=== PATIENT | female | born 1975 | race Two or more races ===

== ENCOUNTER 2019-09-22 07:10 | Emergency (ER) | payer OTHER ==
--- NOTE | 2019-09-22 10:21 | RADIOLOGY REPORT (SQ) ---
EXAM DESCRIPTION: KUB/ABDOMEN (SINGLE VIEW) COMPLETED DATE/TIME: 09/22/2019 10:09 am REASON FOR STUDY: back pain/abd pain, hard stools COMPARISON: None. NUMBER OF VIEWS: One view. TECHNIQUE: Supine radiographic image of the abdomen acquired. LIMITATIONS: None by collimation. FINDINGS: BOWEL GAS PATTERN: Normal bowel gas pattern. No dilated loops. Moderate fecal burden thro ughout the colon. CALCIFICATIONS: No suspicious calcifications. Scattered pelvic phleboliths. SOFT TISSUES: No gross mass or suggestion of organomegaly. HARDWARE: None in the abdomen. BONES: No acute fracture. No worrisome bone lesions. OTHER: No other significant finding. IMPRESSION: No evidence of acute intra-abdominal/pelvic process. Moderate fecal burden throughout the colon. TECHNICAL DOCUMENTATION: JOB ID: [id number] [employer]- All Rights Reserved Reading location - IP/workstation name: [email or web address]
[2019-09-22] MEDS ORDERED: DICYCLOMINE HCL INJ 20 MG/2 ML AMPULE IM ONE (10:53)
[2019-09-22] MEDS ORDERED: ONDANSETRON HCL INJ/PF 4 MG/2 ML SDV IV ONE (10:53)
[2019-09-22] MEDS ORDERED: MAGNESIUM CITRATE 296 ML BOTTLE PO ONE (10:54)
[2019-09-22] MEDS ORDERED: NORMAL SALINE 1000 ML 1,000 ML IV ONE (10:54)
--- NOTE | 2019-09-22 11:29 | ER Document Report ---
ED General - General Chief Complaint: Back Pain Stated Complaint: LOW BACK/FLANK PAIN Time Seen by Provider: 09/22/19 10:11 Primary Care Provider: [facility] [Provider Group] - Follow up in 3-5 days RORY ECHAVARRIA MD [ACTIVE STAFF] - Follow up in 3-5 days Notes: 44-year-old female presents for abdominal pain for the past few days. Patient also states she has been constipated for 1.5 weeks. Patient states she had a small hard stool yesterday. Patient is still passing gas. Patient also has had nausea/vomiting. Patient denies any history of abdominal surgeries. Patient denies any fever, chills, diarrhea, urinary symptoms. Past Medical History - Social History Smoking Status: Unknown if Ever Smoked Frequency of alcohol use: None Drug Abuse: None Family History: None Patient has suicidal ideation: No Patient has homicidal ideation: No - Past Medical History Cardiac Medical History: Reports: Hx Hypercholesterolemia, Hx Hypertension Psychiatric Medical History: Reports: Hx Depression Review of Systems - Review of Systems Notes: Constitutional: Negative for fever. HENT: Negative for sore throat. Eyes: Negative for visual changes. Cardiovascular: Negative for chest pain. Respiratory: Negative for shortness of breath. Gastrointestinal: Positive for abdominal pain, vomiting, constipation. Negative for diarrhea. Genitourinary: Negative for dysuria. Musculoskeletal: Negative for back pain. Skin: Negative for rash. Neurological: Negative for headaches, weakness or numbness. 10 point ROS negative except as marked above and in HPI. Physical Exam - Vital signs Vitals: Temp Pulse Resp BP Pulse Ox 98.2 F 64 16 112/66 100 09/22/19 07:29 09/22/19 07:29 09/22/19 07:29 09/22/19 07:29 09/22/19 07:29 - Notes Notes: GENERAL: Well-appearing, well-nourished and in no acute distress. HEAD: Atraumatic, normocephalic. EYES: Extraocular movements intact, sclera anicteric, conjunctiva are normal. NECK: Normal range of motion, supple without lymphadenopathy or JVD. LUNGS: Breath sounds clear to auscultation bilaterally and equal. No wheezes rales or rhonchi. HEART: Regular rate and rhythm without murmurs, rubs or gallops. ABDOMEN: Soft, mildly tender to left side.. No guarding, no rebound. No masses appreciated. EXTREMITIES: Normal range of motion, no pitting or edema. No clubbing or cyanosis. NEUROLOGICAL: Cranial nerves II through XII grossly intact. Normal speech, normal gait. PSYCH: Normal mood, normal affect. SKIN: Warm, Dry, normal turgor, no rashes or lesions noted. Course - Re-evaluation Re-evalutation: 09/22/19 44-year-old female presents with abdominal pain, nausea/vomiting/constipation for the past week and a half. Patient states she is having small hard stools. Patient states she usually goes daily. No blood. Patient is tender to the left side of her abdomen without guarding or rebound. PE is otherwise unremarkable. Patient is nontoxic, well-appearing. KUB shows moderate fecal burden throughout the colon. Lab work was ordered. Bentyl IM and Zofran IV, mag citrate, and IV fluids were also ordered. 09/22/19 12:44 patient p.o. tolerant. Lab work is unremarkable. No leukocytosis. Liver enzymes are normal. Kidney function is normal. Lipase is normal. Alk phos is normal. Patient is afebrile. Patient's symptoms have subs ided at this time. Patient given prescription for Bentyl, Zofran, and mag citrate. Patient also given close follow-up with PCP. Strict return precautions given/discussed. Patient voices understanding and agrees with plan of care. - Vital Signs Vital signs: Temp Pulse Resp BP Pulse Ox 98.1 F 52 L 16 106/53 L 96 09/22/19 10:33 09/22/19 10:33 09/22/19 10:33 09/22/19 10:33 09/22/19 10:33 - Laboratory Result Diagrams: 09/22/19 11:15 09/22/19 11:15 Laboratory results interpreted by me: 09/22/19 09/22/19 11:15 11:15 RDW 14.4 H Urine Protein 100 H Urine Blood SMALL H Leukocyte Esterase Rfl TRACE H Discharge - Discharge Clinical Impression: Abdominal pain Qualifiers: Abdominal location: generalized Qualified Code(s): R10.84 - Generalized abdominal pain Nausea & vomiting Qualifiers: Vomiting type: unspecified Vomiting Intractability: unspecified Qualified Code(s): R11.2 - Nausea with vomiting, unspecified Constipation Qualifiers: Constipation type: unspecified constipation type Qualified Code(s): K59.00 - Constipation, unspecified Condition: Stable Disposition: HOME, SELF-CARE Instructions: Abdominal Pain ([facility]), Antinausea Medication ([facility]), Constipation ([facility]), Intravenous (IV) Fluids ([facility]) Additional Instructions: Your abdominal x-ray showed constipation. Your lab work including CBC, CMP, urine was reassuring today. Please take medications as prescribed. Please follow-up with your primary care doctor in 3 to 5 days. Return immediately to ER if you start having any worsening symptoms, including worsening abdominal pain, being unable to pass gas, vomiting not controlled by medication, fever, chills, chest pain, shortness of breath, or any other symptoms that are concerning to you. Prescriptions: Ondansetron [Zofran Odt 4 mg Tablet] 1 - 2 tab PO Q4HP PRN #10 tab.rapdis PRN Reason: Dicyclomine HCl [Bentyl 20 mg Tablet] 20 mg PO QID #40 tablet Magnesium Citrate [Citrate of Magnesia 296 ml Bottle] 296 ml PO DAILY #1 bottle Forms: Return to Work Referrals: RORY ECHAVARRIA MD [ACTIVE STAFF] - Follow up in 3-5 days [facility] [Provider Group] - Follow up in 3-5 days
[2019-09-22 11:36] LABS: ABSOLUTE LYMPHOCYTES (AUTO) 1.7 10^3/uL (0.5-4.7); ABSOLUTE MONOCYTES (AUTO) 0.4 10^3/uL (0.1-1.4); ABSOLUTE NEUT (AUTO) 6.7 10^3/uL (1.7-8.2); BASOPHILS % (AUTO) 0.3 % (0-2); EOSINOPHILS % (AUTO) 0.4 % (0-6); HEMATOCRIT 38.3 % (36.0-47.0); HEMOGLOBIN 13.4 g/dL (12.0-15.5); LYMPHOCYTES % (AUTO) 19.2 % (13-45); MEAN CORPUSCULAR HEMOGLOBIN 31.6 pg (27.0-33.4); MEAN CORPUSCULAR HGB CONC 34.9 g/dL (32.0-36.0); MEAN CORPUSCULAR VOLUME 91 fl (80-97); MONOCYTES % (AUTO) 4.3 % (3-13); PLATELET COUNT 368 10^3/uL (150-450); RED BLOOD COUNT 4.23 10^6/uL (3.72-5.28); RED CELL DISTRIBUTION WIDTH 14.4 % (11.5-14.0); SEGMENTED NEUTROPHILS % (AUTO) 75.8 % (42-78); TOTAL CELLS COUNTED % (AUTO) 100 %; WHITE BLOOD COUNT 8.9 10^3/uL (4.0-10.5)
[2019-09-22 11:42] LABS: APPEARANCE,URINE SLIGHTLY-CLOUDY; BILIRUBIN,URINE NEGATIVE (NEGATIVE); COLOR,URINE YELLOW; GLUCOSE, URINE NEGATIVE (NEGATIVE); KETONES,URINE NEGATIVE (NEGATIVE); PROTEIN,URINE 100 mg/dL (NEGATIVE); URINE SPECIFIC GRAVITY 1.027; UROBILINOGEN,URINE NEGATIVE mg/dL (<2.0)
[2019-09-22 11:56] LABS: ALBUMIN 4.6 g/dL (3.5-5.0); ALKALINE PHOSPHATASE 85 U/L (38-126); ANION GAP 12 (5-19); ASPARTATE AMINO TRANSFERASE 21 U/L (14-36); BILIRUBIN,DIRECT 0.2 mg/dL (0.0-0.4); BILIRUBIN,TOTAL 0.5 mg/dL (0.2-1.3); BLOOD UREA NITROGEN 13 mg/dL (7-20); CALCIUM 9.7 mg/dL (8.4-10.2); CARBON DIOXIDE 27 mmol/L (22-30); CHLORIDE 101 mmol/L (98-107); GLUCOSE 85 mg/dL (75-110); POTASSIUM 4.7 mmol/L (3.6-5.0); TOTAL PROTEIN 7.8 g/dL (6.3-8.2)
[2019-09-22 12:53] VITALS: BP 122/65
== END 2019-09-22 12:52 | disposition home or self-care (01) ==
LOC: ER 07:10
DX: R10.84 Generalized abdominal pain (principal); K59.00 Constipation, unspecified; R11.2 Nausea with vomiting, unspecified; M54.9 Dorsalgia, unspecified; M54.5 Low back pain; I10 Essential (primary) hypertension
CPT/HCPCS: 99283; 96372; 96361; 96374; 36415; 87086; 83690; 84703; 85025; 80053; 81001; 74018; J3490; J0500; J2405; J7030

== ENCOUNTER 2020-07-17 12:08 | Emergency (ER) | payer OTHER ==
--- NOTE | 2020-07-17 12:44 | ER Document Report ---
ED Medical Screen (RME) - General Chief Complaint: Headache Stated Complaint: HEADACHE,NECK PAIN Time Seen by Provider: 07/17/20 12:39 Information source: Patient Notes: Patient presents complaining of dizziness with nausea and vomiting off and on since Saturday. Patient states that today she had a sudden onset of headache pain around 10 AM and had vision disturbances. Patient states her hearing has been off all week. Patient does have a history of aneurysm that has been previously clipped. Patient is concerned about possible stroke. Patient reports headache pain to the left posterior scalp that radiates into the neck area I have greeted and performed a rapid initial assessment of this patient. A comprehensive ED assessment and evaluation of the patient, analysis of test results and completion of the medical decision making process will be conducted by additional ED providers. - Related Data Allergies/Adverse Reactions: No Known Allergies Allergy (Unverified 07/17/20 12:38) Past Medical History - Past Medical History Cardiac Medical History: Reports: Hx Hypercholesterolemia, Hx Hypertension Psychiatric Medical History: Reports: Hx Depression Physical Exam - Vital signs Vitals: Temp Pulse Resp BP Pulse Ox 98.7 F 86 16 121/60 100 07/17/20 12:15 07/17/20 12:15 07/17/20 12:15 07/17/20 12:15 07/17/20 12:15 - Neurological Orientation: AAOx4 Lawson Coma Scale Eye Opening: Spontaneous Lawson Coma Scale Verbal: Oriented Lawson Coma Scale Motor: Obeys Commands Laura Coma Scale Total: 15 Course - Vital Signs Vital signs: Temp Pulse Resp BP Pulse Ox 98.7 F 86 16 121/60 100 07/17/20 12:15 07/17/20 12:15 07/17/20 12:15 07/17/20 12:15 07/17/20 12:15
--- NOTE | 2020-07-17 13:20 | RADIOLOGY REPORT (SQ) ---
EXAM DESCRIPTION: CHEST SINGLE VIEW IMAGES COMPLETED DATE/TIME: 07/17/2020 1:03 pm REASON FOR STUDY: BUENO, vision change, hx aneurysm clipping COMPARISON: None. NUMBER OF VIEWS: One view. TECHNIQUE: Single frontal radiographic view of the chest acquired. LIMITATIONS: None. FINDINGS: LUNGS AND PLEURA: No opacities, masses or pneumothorax. No pleural effusion. MEDIASTINUM AND HILAR STRUCTURES: No masses. Contour normal. HEART AND VASCULAR STRUCTURES: Heart normal in size. Normal vasculature. BONES: No acute findings. HARDWARE: None in the chest. OTHER: No other significant finding. IMPRESSION: NO SIGNIFICANT RADIOGRAPHIC FINDING IN THE CHEST. TECHNICAL DOCUMENTATION: JOB ID: [id number] 2010 [employer]- All Rights Reserved Reading location - IP/workstation name: [email or web address]
--- NOTE | 2020-07-17 13:29 | RADIOLOGY REPORT (SQ) ---
EXAM DESCRIPTION: CT HEAD WITHOUT IMAGES COMPLETED DATE/TIME: 07/17/2020 1:09 pm REASON FOR STUDY: BUENO, vision change, hx aneurysm clipping COMPARISON: CT/CTA head 05/11/2011 TECHNIQUE: Axial images acquired through the brain without intravenous contrast. Images reviewed wi th bone, brain and subdural windows. Images stored on PACS. All CT scanners at this facility use dose modulation, iterative reconstruction, and/or weight based d osing when appropriate to reduce radiation dose to as low as reasonably achievable (ALARA). [facility]: Dose Right [facility]: CareDose [facility]: Dose Right [facility]: Teradose 4D [facility]: [employer] RADIATION DOSE: CT Rad equipment meets quality standard of care and radiation dose reduction techniq ues were employed. CTDIvol: 53.2 mGy. DLP: 1044 mGy-cm. mGy. LIMITATIONS: None. FINDINGS: VENTRICLES: Normal size and contour, apart from a subtle ex vacuo dilatation of the fronta l horn on the right secondary to a small region of encephalomalacia in the adjacent parenchyma. CEREBRUM: No masses. No hemorrhage. No midline shift. No evidence for acute infarction. Normal gra y/white matter differentiation. No areas of low density in the white matter. CEREBELLUM: No masses. No hemorrhage. No alteration of density. No evidence for acute infarction. EXTRAAXIAL SPACES: No fluid collections. No masses. ORBITS AND GLOBE: No intra- or extraconal masses. Normal contour of globe without masses. CALVARIUM: No fracture. PARANASAL SINUSES: No fluid or mucosal thickening. SOFT TISSUES: No mass or hematoma. OTHER: Metallic aneurysm clip is unchanged. No other significant finding. IMPRESSION: No intracranial hemorrhage, mass effect/ midline shift, or large vessel territory hypode nsity to suggest acute ischemia. 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 EVIDENCE OF ACUTE STROKE: NO. COMMENT: Quality ID # [id number]: Final reports with documentation of one or more dose reduction techniques (e.g., Automated exposure control, adjustment of the mA and/or kV according to patient size, use of iterative reconstruction technique) TECHNICAL DOCUMENTATION: JOB ID: [id number] 2010 [employer]- All Rights Reserved Reading location - IP/workstation name: [email or web address]
[2020-07-17 13:42] LABS: ABSOLUTE EOSINOPHILS # (AUTO) 0.1 10^3/uL (0.0-0.6); ABSOLUTE LYMPHOCYTES (AUTO) 1.8 10^3/uL (0.5-4.7); ABSOLUTE MONOCYTES (AUTO) 0.5 10^3/uL (0.1-1.4); ABSOLUTE NEUT (AUTO) 4.5 10^3/uL (1.7-8.2); BASOPHILS % (AUTO) 0.5 % (0-2); HEMATOCRIT 36.9 % (36.0-47.0); HEMOGLOBIN 12.8 g/dL (12.0-15.5); LYMPHOCYTES % (AUTO) 25.5 % (13-45); MEAN CORPUSCULAR HEMOGLOBIN 31.2 pg (27.0-33.4); MEAN CORPUSCULAR HGB CONC 34.7 g/dL (32.0-36.0); MEAN CORPUSCULAR VOLUME 90 fl (80-97); MONOCYTES % (AUTO) 7.2 % (3-13); PLATELET COUNT 325 10^3/uL (150-450); SEGMENTED NEUTROPHILS % (AUTO) 65.8 % (42-78); TOTAL CELLS COUNTED % (AUTO) 100 %; WHITE BLOOD COUNT 6.9 10^3/uL (4.0-10.5)
[2020-07-17 13:48] LABS: INTERNATIONAL RATION (INR) 0.97; PROTHROMBIN TIME 13.1 SEC (11.4-15.4)
[2020-07-17 13:49] LABS: PARTIAL THROMBOPLASTIN TIME 31.5 SEC (23.5-35.8)
[2020-07-17 14:04] LABS: ALBUMIN 4.6 g/dL (3.5-5.0); ALKALINE PHOSPHATASE 97 U/L (38-126); ANION GAP 9 (5-19); ASPARTATE AMINO TRANSFERASE 32 U/L (14-36); BILIRUBIN,DIRECT 0.2 mg/dL (0.0-0.4); BILIRUBIN,TOTAL 0.5 mg/dL (0.2-1.3); BLOOD UREA NITROGEN 14 mg/dL (7-20); CARBON DIOXIDE 27 mmol/L (22-30); CHLORIDE 103 mmol/L (98-107); CREATINE KINASE 601 U/L (30-135); GLUCOSE 99 mg/dL (75-110); POTASSIUM 4.5 mmol/L (3.6-5.0); TOTAL PROTEIN 7.4 g/dL (6.3-8.2)
[2020-07-17 14:24] LABS: CREATINE KINASE MB 0.25 ng/mL (<4.55)
[2020-07-17 14:27] LABS: TROPONIN I < 0.012 ng/mL
--- NOTE | 2020-07-17 14:53 | ER Document Report ---
Entered by NATHANIEL GABRIEL SCRIBE 07/17/20 1328 Acting as scribe for:ALISA RAINES MD ED General - General Chief Complaint: Headache Stated Complaint: HEADACHE,NECK PAIN Time Seen by Provider: 07/17/20 12:39 Mode of Arrival: Ambulatory Information source: Patient Notes: This 45-year-old female patient with a family and personal history of cerebral aneurysm s/p titanium clipping presents today with complaints of a one week history of lightheadedness and dizziness with associated vomiting. Patient requesting to have her head scanned today which is why it sounds like she is here ultimately. She states she went to [facility] a few days ago, they did "not scan her head, gave her Zofran which made her symptoms worse, and then gave her Phenergan which helped her symptoms". Patient mentions that she had an episode where she "felt like she got hit in the top of her head with a hammer" and she had blurred vision but that has all subsided. - Related Data Allergies/Adverse Reactions: No Known Allergies Allergy (Unverified 07/17/20 12:38) Past Medical History - General Information source: Patient - Social History Smoking Status: Unknown if Ever Smoked Cigarette use (# per day): No Frequency of alcohol use: None Drug Abuse: None Lives with: Family Family History: Other - Cerebral aneurysm - Past Medical History Cardiac Medical History: Reports: Hx Hypercholesterolemia, Hx Hypertension Neurological Medical History: Reports: Other - Hx aneurysm clipping Psychiatric Medical History: Reports: Hx Depression Past Surgical History: Reports: Hx Neurologic Surgery - Brain aneurysm clipping Review of Systems - Review of Systems Constitutional: No symptoms reported EENT: No symptoms reported Cardiovascular: See HPI, Dizziness, Lightheaded Respiratory: No symptoms reported Gastrointestinal: See HPI, Vomiting Genitourinary: No symptoms reported Female Genitourinary: No symptoms reported Musculoskeletal: No symptoms reported Skin: No symptoms reported Hematologic/Lymphatic: No symptoms reported Neurological/Psychological: No symptoms reported -: Yes All other systems reviewed and negative Physical Exam - Vital signs Vitals: Temp Pulse Resp BP Pulse Ox 98.7 F 86 16 121/60 100 07/17/20 12:15 07/17/20 12:15 07/17/20 12:15 07/17/20 12:15 07/17/20 12:15 - Notes Notes: Physical Exam: General: Alert, appears well. HEENT: Normocephalic. Atraumatic. PERRL. Extraocular movements intact. Oropharynx clear. Left TM is normal. Right TM is unable to be visualized due to cerumen impaction. Neck: Supple. Non-tender. Respiratory: No respiratory distress. Clear and equal breath sounds bilaterally. Cardiovascular: Regular rate and rhythm. Abdominal: Normal Inspection. Non-tender. No distension. Normal Bowel Sounds. Back: No gross abnormalities. Extremities: Moves all four extremities. Upper extremities: Normal inspection. Normal ROM. Lower extremities: Normal inspection. No edema. Normal ROM. Neurological: Normal cognition. AAOx4. Normal speech. Cranial nerves II through XII grossly intact bilaterally. Fewq-cq-walk test intact. No pronator drift. Xwhreq-wf-syzo test intact. Normal hazardous waste technician strength bilaterally. Normal sensation bilaterally. Psychological: Normal affect. Normal Mood. Skin: Warm. Dry. Normal color. Course - Re-evaluation Re-evalutation: 07/17/20 14:46 Patient sitting comfortably resting in bed no complaints of headache or dizziness at this time. Patient is pending her results which we discussed. CT scan of the head showed no evidence for any intracranial bleed or stroke. - Vital Signs Vital signs: Temp Pulse Resp BP Pulse Ox 98.7 F 51 L 16 118/71 99 07/17/20 12:15 07/17/20 13:05 07/17/20 13:05 07/17/20 13:05 07/17/20 13:05 07/17/20 14:46 Vital signs stable. - Laboratory Result Diagrams: 07/17/20 13:20 07/17/20 13:20 Laboratory results interpreted by me: 07/17/20 07/17/20 13:08 13:20 POC Glucose 111 H Creatine Kinase 601 H 07/17/20 14:47 Laboratories within normal range except a CK of 601. 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 Patient's blood sugar is 111. - Diagnostic Test Radiology reviewed: Image reviewed, Reports reviewed Radiology results interpreted by me: 07/17/20 14:47 Chest X-Ray 07/17/20 12:42 IMPRESSION: NO SIGNIFICANT RADIOGRAPHIC FINDING IN THE CHEST. Head CT 07/17/20 12:42 IMPRESSION: No intracranial hemorrhage, mass effect/ midline shift, or large vessel territory hypodensity to suggest acute ischemia. 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 EVIDENCE OF ACUTE STROKE: NO. Chest x-ray shows no acute infiltrate. And head CT shows no evidence for an acute stroke there is an area in the right frontal lobe where patient has an prior aneurysm clipping and probable old infarct in that region. Discharge - Discharge Clinical Impression: Labyrinthitis of left ear Condition: Stable Disposition: HOME, SELF-CARE Instructions: Labyrinthitis ([facility]), Meclizine ([facility]) Additional Instructions: Labyrinthitis Labyrinthitis is a temporary disease of the inner ear. It's sometimes called vestibulitis. It often starts a few days after a cold or virus infection. Symptoms include vertigo (the spinning type of dizziness) or a sense of unsteadiness and nausea. The symptoms usually go away in a couple of days without any treatment. You should rest and keep your head still. The dizziness is worse if you move your head. Closing the eyes usually helps. Don't drive, work with d angerous machinery, or get up on ladders or scaffolds until a few days after the dizziness resolves. Medicine such as meclizine (Antivert, Bonine) can reduce the dizziness and nausea. Tranquilizers (such as diazepam) can suppress your sense of balance, reducing the unpleasantness of the vertigo. Call or return if you develop ear pain, loss of hearing, fever, severe vomiting, or any other new symptom. Prescriptions: Meclizine HCl [Antivert 25 mg Tablet] 25 mg PO TID PRN #30 tablet PRN Reason: I personally performed the services described in the documentation, reviewed and edited the documentation which was dictated to the scribe in my presence, and it accurately records my words and actions.
[2020-07-17 16:26] VITALS: BP 142/88
--- NOTE | 2020-07-17 19:15 | EKG REPORT ---
SEVERITY:- ABNORMAL ECG - SINUS RHYTHM FIRST DEGREE AV BLOCK : Confirmed by: Clinton Corea MD 17-Jul-2020 19:14:13
== END 2020-07-17 16:26 | disposition home or self-care (01) ==
LOC: ER 12:08
DX: H83.02 Labyrinthitis, left ear (principal); H61.21 Impacted cerumen, right ear; R42 Dizziness and giddiness; R11.10 Vomiting, unspecified; R51.9 Headache, unspecified; I10 Essential (primary) hypertension
CPT/HCPCS: 36415; 70450; 71045; 80053; 82550; 82553; 82962; 84484; 85025; 85610; 85730; 93005; 93010; 99285